=== PATIENT | female | born 1965 | race Caucasian/White ===

== ENCOUNTER 2017-03-19 11:23 | Day surgery (SDC) | payer BC ==
[~2017-03-19 11:23] MED LIST: ESTRADIOL1 EA11 TD; HORMONE; HYDROCODONE-AP473 ML PO; LEXAPRO10 M2 PO; NO MEDS; PRILOSEC20 MG PO; ZOFRAN4 M1 PO
== END 2017-03-19 14:20 ==
LOC: SHSA 11:23 → ENDOS 13:00
PROC: 0DBN8ZX Excision of Sigmoid Colon, Via Natural or Artificial Opening Endoscopic, Diagnostic (ICD-10-PCS; principal; 2017-03-19)
PROC: 0DBK8ZX Excision of Ascending Colon, Via Natural or Artificial Opening Endoscopic, Diagnostic (ICD-10-PCS; 2017-03-19)
DX: Z12.11 Encounter for screening for malignant neoplasm of colon (principal); D12.3 Benign neoplasm of transverse colon; D12.5 Benign neoplasm of sigmoid colon; F32.9 Major depressive disorder, single episode, unspecified; Z80.0 Family history of malignant neoplasm of digestive organs; Z86.010 Personal history of colon polyps; Z79.899 Other long term (current) drug therapy